=== PATIENT | male | born 1990 | race Hispanic/Latino ===

== ENCOUNTER 2018-04-17 07:35 | Emergency (ER) | payer SELFPAY ==
[2018-04-17 07:45] VITALS: BP 164/85
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
[2018-04-17] MEDS ORDERED: MOTRIN PO ONE (09:26)
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
== END 2018-04-17 09:54 | disposition home or self-care (01) ==
LOC: ED 07:35
DX: S66.912A Strain of unspecified muscle, fascia and tendon at wrist and hand level, left hand, initial encounter (principal); F17.200 Nicotine dependence, unspecified, uncomplicated; V29.88XA Motorcycle rider (driver) (passenger) injured in other specified transport accidents, initial encounter; Y93.55 Activity, bike riding; Y92.89 Other specified places as the place of occurrence of the external cause; Y99.8 Other external cause status
CPT/HCPCS: 99283